=== PATIENT | female | born 1950 | race Caucasian/White ===

== ENCOUNTER 2020-04-26 08:38 | Day surgery (SDC) | payer MEDICARE, SELFPAY ==
[2020-03-29 14:27] VITALS: BMI 29.5
--- NOTE | 2020-04-26 | COLBX_PTH ---
PATIENT: OSCAR STOCK LOC: EN U#:[id number] AGE/SX: 69/F ROOM: RE04/26/[address]: Dr. Hunter Rodriguez MD : 1950 BED: DIS: 04/26/2020 SPEC #: [id number] RECD: 04/26/20 13:46 STATUS: TOBIAS REHumberto #: [id number] ERICA: 04/26/20 00:[address]: Hunter Rodriguez DEPT: SURGICAL PATHOLOGY RECD BY: Amaury Sparks ENTERED: 04/27/20 08:42 SP TYPE: COLON BX OTHR DR: Dr. Bridgett Mai MD Tissues: Transverse colon Procedures: Surgery Specimen Level IV HEADER OPERATION: Colonoscopy (MAC) PRE-OP DIAGNOSIS: Screening colonoscopy TISSUE SUBMITTED: Transverse polyp MICROSCOPIC DIAGNOSIS Transverse colon polyp, biopsy: Tubular adenoma. AM:bull 04/28/20 MICROSCOPIC DESCRIPTION Slides are reviewed. GROSS DESCRIPTION Received in fixative is one container labeled with the patient's name and designated transverse polyp. The specimen consists of a piece of negron-pink polyp measuring 0.5 x 0.5 x 0.3 cm. The specimen is totally submitted in one cassette. / SJ:bull 04/27/20 TC:5 CPT: 74767
--- NOTE | 2020-04-26 06:30 | HP_ITS ---
Intake Vital Signs 03/29/20 Height 5 ft 6 in 03/29/20 Weight: 183 lb 03/29/20 BP 146/77 H 03/29/20 Blood Pressure Location Rt brachial 03/29/20 Position Sitting 03/29/20 Respiration 18 Intake Visit Reasons: CSCOPE Chief Complaint: c-scope Transmission Rebuilder Required: No Is patient in pain?: No Allergies sulfamethoxazole [From Bactrim] Allergy (Mild, Verified 03/29/20 14:28) rash trimethoprim [From Bactrim] Allergy (Mild, Verified 03/29/20 14:28) rash Medications allopurinol 300 mg tablet 300 mg PO DAILY #90 tab 03/18/20 [Rx Confirmed 03/29/20] amiodarone 100 mg tablet 100 mg PO DAILY 03/18/20 [History Confirmed 03/29/20] amlodipine 5 mg tablet 5 mg PO DAILY 03/18/20 [History Confirmed 03/29/20] atorvastatin 10 mg tablet 10 mg PO QHS 03/18/20 [History Confirmed 03/29/20] cyclobenzaprine 10 mg tablet 10 mg PO TID 03/18/20 [History Confirmed 03/29/20] diclofenac sodium 1 % topical gel 4 g TOPICAL .QID g 03/18/20 [History Confirmed 03/29/20] metoprolol tartrate 25 mg tablet 25 mg PO BID 03/18/20 [History Confirmed 03/29/20] rivaroxaban 15 mg tablet 15 mg PO DAILY #90 tab 03/18/20 [Rx Confirmed 03/29/20] tramadol 50 mg tablet 100 mg PO TID PRN tab 03/18/20 [History Confirmed 03/29/20] [facility] Medical History Pancreatitis (Acute) Neuropathy (Chronic) Hives (Acute) Kidney disease (Chronic) Hypertriglyceridemia (Chronic) Hyperlipemia (Chronic) Hypertension (Chronic) Gout (Chronic) Gallstones (Acute) Carpal tunnel syndrome (Acute) Atrial fibrillation (Chronic) Anemia (Acute) Osteoarthritis (Chronic) Seasonal allergies (Chronic) Surgical History History of benign breast biopsy (Acute) History of bilateral knee replacement (Acute) History of cholecystectomy (Acute) History of tonsillectomy (Acute) history of right shoulder surgery (Acute) Family History Mother Myocardial infarction, Onset Age: 75 Other Arthritis CVA (cerebral vascular accident) Cancer Hyperlipemia Hypertension Social History (Updated 03/31/20 @ 10:[address] Hunter Rodriguez MD) Smoking Status: Former smoker quit date: 05/28/04 Tobacco: How many years used: 20 alcohol intake: never substance use type: does not use what type of physical activity do you participate in: walking frequency: 5-6 times per week HPI HPI Surgical H&P: Yes HPI: OSCAR STOCK, is a 69 F who presents to the office today for Evaluation for endoscopy. Patient has had her last colonoscopy greater than 10 years ago. And she presents today for screening colonoscopy. She is having no GI symptoms whatsoever. She is currently on Xarelto for atrial fibrillation. ROS General General: No weight change, appetite, fatigue, colon cancer, breast cancer or weakness HEENT HEENT: No difficulty swallowing, eye injury, eye surgery, swollen glands or hoarseness Endo Endocrine: No thyroid disease, diabetes mellitus, thyroid cancer, Hair loss, heat intolerance or cold intolerance Skin Skin: No rash or changing moles Breast Breast: No left breast lump, right breast lump, nipple discharge, breast pain, abnormal mammogram, abnormal US or breast enlargement Musc Musculoskeletal: Yes back problems, arthritis and gout; no rheumatoid arthritis or joint pain Cardio Cardiovascular: Yes atrial fibrillation and high blood pressure; no murmur, pacemaker, heart disease, heart attack, heart stent, palpitations, shortness of breat with exertion or chest pain Psych Psychiatric: No depression, anxiety or hearing voices Resp Respiratory: No shortness of breath, No sleep apnea, No cough, No COPD, No asthma, No emphysema, No wheezing Gastro Gastrointestinal: No abdominal pain, No nausea or vomiting, No diarrhea, No constipation, No blood in stool, No acid reflux, No hemorrhoids, No ulcers, No gallbladder problem, No black,tarry stools Curt Hematologic: Yes blood thinners, No blood disorders, No bleeding, No anemia, No blood clots Neuro Neurologic: No weakness Exam Const General: no acute distress, well developed, well hydrated Orientation: oriented to person, oriented to place, oriented to time [facility] Head: normocephalic, atraumatic Ears: external ears normal Mouth: moist mucous membranes Eyes Sclera: sclerae normal Pupils: normal by confrontation Neck Neck: no lymphadenopathy noted Neck mass: No Thyroid: thyroid normal, symmetrical Chest Chest palpation & inspection: normal inspection of the chest Breast Palpation: No nipple discharge Resp Effort & Inspection: normal respiratory effort Auscultation: clear to auscultation bilaterally Percussion: percussion normal Cardio Rate: regular rate Rhythm: regular rhythm Heart Sounds: no murmurs GI Palpation: soft, no hepatosplenomegaly, no masses, nontender Rectal Exam: other Other: Rectal exam deferred. Extrem General: normal to inspection, no clubbing, cyanosis or edema Assessment & Plan Problems 1. Encounter for screening colonoscopy Z12.11 Plan I have discussed the above with the patient. I have offered the patient colonoscopy for evaluation. I have explained the risks/benefits of the procedure and described the procedure. I have discussed the risks with the patient, including but not limited to: infection, bleeding, perforation of the GI tract requiring emergency surgery, inability to complete the procedure, injury to any internal organs, complications of anesthesia, etc. - the patient understands and agrees to proceed. I have answered all the patient's questions to the patient's satisfaction and the patient has no further questions. The patient has been given instructions for the colon cleansing preparation. Coding Level of Care Code Off vis,new,level 3 Diagnoses Encounter for screening colonoscopy Z12.11 COVID (Procedure Consent) Procedure Criteria Procedure Criteria: Yes Elective The surgeon/proceduralist and patient have discussed in detail the risk of exposure to and/or potential harm posed by the COVID-19 virus with having a surgery/procedure at this time versus the risk of? delaying the surgery/procedure. It is not possible to know either the risk of delaying the surgery or procedure or chance of getting an infection with perfect accuracy, but a joint decision was made between the patient and the surgeon/proceduralist ?to proceed at this time with the scheduled surgery/procedure as indicated on the consent form. I have re-examined the patient. There are no clinical changes since date of exam.
[2020-04-26 08:59] VITALS: BP 121/62; PULSE 60; RESP 14; TEMP 36.2; O2SAT 100; BMI 28.6
[2020-04-26] MEDS: Lactated Ringers 1,000 ML 100 ML IV (09:11)
--- NOTE | 2020-04-26 09:57 | OP.COLON_ITS ---
Patient Name: Shanna Chavez Procedure Date: 04/26/2020 9:30 AM Date of : 1950 Age: 69 Procedure: Colonoscopy Indications: Screening for colorectal malignant neoplasm Providers: Hunter Rodriguez MD Referring MD: Bridgett Mai Medicines: See the Anesthesia note for documentation of the administered medications Patient Profile: This is a 69 year old female. Refer to note in patient chart for documentation of history and physical. Last Colonoscopy: more than 10 years ago. Complications: No immediate complications. Procedure: Pre-Anesthesia Assessment: - Prior to the procedure, a History and Physical was performed, and patient medications and allergies were reviewed. The patient's tolerance of previous anesthesia was also reviewed. The risks and benefits of the procedure and the sedation options and risks were discussed with the patient. All questions were answered, and informed consent was obtained. Prior Anticoagulants: The patient has taken no previous anticoagulant or antiplatelet agents. ASA Grade Assessment: II - A patient with mild systemic disease. After reviewing the risks and benefits, the patient was deemed in satisfactory condition to undergo the procedure. After I obtained informed consent, the scope was passed under direct vision. Throughout the procedure, the patient's blood pressure, pulse, and oxygen saturations were monitored continuously. The colonoscope was introduced through the anus and advanced to the cecum, identified by appendiceal orifice and ileocecal valve. The colonoscopy was performed without difficulty. The patient tolerated the procedure well. The quality of the bowel preparation was good. Scope In: 9:40:10 AM Scope Withdrawal Time 0 hours 6 minutes 35 seconds Scope Out: 9:53:19 AM Total Procedure Duration Time 0 hours 13 minutes 9 seconds Findings: A 5 mm polyp was found in the transverse colon. The polyp was sessile. The polyp was removed with a hot snare. Resection and retrieval were complete. A few small-mouthed diverticula were found in the sigmoid colon. No biopsies or other specimens were collected for this exam. Non-bleeding internal hemorrhoids were found during retroflexion. The hemorrhoids were mild and small. The exam was otherwise without abnormality. Impression: - One 5 mm polyp in the transverse colon, removed with a hot snare. Resected and retrieved. - Diverticulosis in the sigmoid colon. No specimens collected. - Non-bleeding internal hemorrhoids. - The examination was otherwise normal. Recommendation: - Discharge patient to home. - Resume previous diet. - Continue present medications. - Await pathology results. - Repeat colonoscopy in 5-10 years for surveillance. - Telephone my office for pathology results in 1 week. Procedure Code(s): --- Professional --- 28008, Colonoscopy, flexible; with removal of tumor(s), polyp(s), or other lesion(s) by snare technique Diagnosis Code(s): --- Professional --- Z12.11, Encounter for screening for malignant neoplasm of colon D12.3, Benign neoplasm of transverse colon (hepatic flexure or splenic flexure) K64.8, Other hemorrhoids K57.30, Diverticulosis of large intestine without perforation or abscess without bleeding CPT copyright 2017 [employer]. All rights reserved. The codes documented in this report are preliminary and upon assistant teacher primary review may be revised to meet current compliance requirements. MD Hunter Lord MD 04/26/2020 9:57:51 AM This report has been signed electronically. Number of Addenda: 0 Note Initiated On: 04/26/2020 9:30 AM
[2020-04-26 09:58] VITALS: BP 121/62; BP 85/47; PULSE 58; RESP 16; TEMP 36; O2SAT 100
--- NOTE | 2020-04-26 09:58 | OP.CCLET_ITS ---
04/26/2020 Bridgett Mai [facility] [address] [place] [address] Re : Colonoscopy procedure for Shanna Chavez Dear Dr. Mai This procedure was performed on Sunday, April 26, 2020. My impressions and recommendations are as follows: Impressions : - One 5 mm polyp in the transverse colon, removed with a hot snare. Resected and retrieved. - Diverticulosis in the sigmoid colon. No specimens collected. - Non-bleeding internal hemorrhoids. - The examination was otherwise normal. Recommendations : - Discharge patient to home. - Resume previous diet. - Continue present medications. - Await pathology results. - Repeat colonoscopy in 5-10 years for surveillance. - Telephone my office for pathology results in 1 week. My findings are described in the full procedure note, which is enclosed. If I can be of further assistance, please feel free to contact me at Doctor phone number(s): , Fax: [phone], Work: . Sincerely, MD Hunter Lord MD 04/26/2020 9:57:51 AM This report has been signed electronically.
[2020-04-26 10:00] VITALS: BP 121/62; BP 83/47; PULSE 58; RESP 16; O2SAT 100
[2020-04-26 10:05] VITALS: BP 121/62; BP 94/54; PULSE 60; RESP 16; O2SAT 99
[2020-04-26 10:11] VITALS: BP 106/59; BP 121/62; PULSE 56; RESP 16; TEMP 36.2; O2SAT 100
[2020-04-26 10:18] VITALS: BP 121/62
== END 2020-04-26 10:36 | disposition home or self-care (01) ==
LOC: EN 08:39 → AC 08:39
PROVIDERS: PCP Internal Medicine; Referring Provider Internal Medicine; Visit Provider Surgery
PROC: 0DJD8ZZ Inspection of Lower Intestinal Tract, Via Natural or Artificial Opening Endoscopic (ICD-10-PCS; CPT 45378; principal; 2020-04-26 09:40)
DX: Z12.11 Encounter for screening for malignant neoplasm of colon (principal); D12.3 Benign neoplasm of transverse colon; K57.30 Diverticulosis of large intestine without perforation or abscess without bleeding; K64.8 Other hemorrhoids; I48.91 Unspecified atrial fibrillation; I10 Essential (primary) hypertension; E78.5 Hyperlipidemia, unspecified; M10.9 Gout, unspecified; M19.90 Unspecified osteoarthritis, unspecified site; Z79.01 Long term (current) use of anticoagulants; Z79.899 Other long term (current) drug therapy; Z87.891 Personal history of nicotine dependence; Z20.828 Contact with and (suspected) exposure to other viral communicable diseases
CPT/HCPCS: 45385; 87426; 88305; C9803; J7120; J1610; J2405

== ENCOUNTER → 2020-07-14 11:39 | Outpatient (CLI) | payer MEDICARE, SELFPAY ==
[2020-07-14 12:59] LABS: Absolute Lymphocyte Count 1.73 X10^3/uL (0.83-4.51); Absolute Neutrophil Count 3.7 X10^3/uL (2.0-7.7); Basophil# 0.06 X10^3/uL; Basophil% 0.9 % (0-1); Eosinophil# 0.26 X10^3/uL; Eosinophils% 4.1 % (0-5); Hematocrit 42.6 % (37-47); Lymphocyte # 1.73 X10^3/ul (4.0); Lymphocyte % 27.2 % (19-41); Mean Corp Hgb Conc 30.5 g/dL (32-36); Mean Corpuscular Hgb 29.3 pg (27.0-32.0); Mean Corpuscular Volume 96.2 fL (81-99); Monocyte# 0.59 X10^3/uL; Monocyte% 9.3 % (0-10); NRBC Flagged by Analyzer 0 % (0-5); Neutrophil # 3.71 X10^3/uL (2.7-7.7); Neutrophil % 58.2 % (47-70); Platelet Count 254 K/mm3 (150-450); RBC Distribution Width CV 14.1 % (11.6-14.6); RBC Distribution Width SD 49.8 fl (35.1-43.9); Red Blood Count 4.43 M/mm3 (4.2-5.4); White Blood Count 6.4 K/mm3 (4.4-11.0)
[2020-07-14 13:27] LABS: ALB/GLOB Ratio 0.9 RATIO (0.9-2.4); AST(SGOT) 24 U/L (15-37); Alanine Aminotransfer ALT/SGPT 17 U/L (13-56); Albumin, Serum 3.9 g/dL (3.2-5.0); Alkaline Phosphatase 149 U/L (45-117); Anion Gap 6 (5-15); BUN 31 mg/dL (7-18); Calcium,Total 9.8 mg/dL (8.5-10.1); Chloride 103 mmol/L (98-107); Cholesterol 167 mg/dL (200); Creatinine, Serum 1.72 mg/dL (0.55-1.02); EST Glomerular Filtration Rate 31 mL/min (>60); Est Glom Filt Rate - Afr Amer 38 mL/min (>60); Globulin 4.3 g/dL (2.2-4.2); Glucose 106 mg/dL (74-106); High Density Lipoprotein 99 mg/dL; Potassium 4.9 mmol/L (3.5-5.1); Protein, Total 8.2 g/dL (6.4-8.2); Sodium Level 137 mmol/L (136-145); Triglycerides 57 mg/dL; Uric Acid 2.6 mg/dL (2.6-6.0); Very Low Density Lipoprotein 11 mg/dL (5-40)
[2020-07-14 13:55] LABS: Hemoglobin A1c 5.5 % (3.8-5.6)
[2020-07-16 14:26] LABS: Vitamin D 1,25-Dihydroxy 23.7 pg/mL (19.9-79.3)
== END ==
PROVIDERS: PCP Internal Medicine; Referring Provider Internal Medicine; Visit Provider Internal Medicine
DX: E78.1 Pure hyperglyceridemia (principal); E78.5 Hyperlipidemia, unspecified; I10 Essential (primary) hypertension; I48.91 Unspecified atrial fibrillation; M10.9 Gout, unspecified; R79.89 Other specified abnormal findings of blood chemistry; K85.90 Acute pancreatitis without necrosis or infection, unspecified
CPT/HCPCS: 36415; 80053; 80061; 82652; 83036; 84550; 85025

== ENCOUNTER 2020-08-03 14:01 | Outpatient (RCR) | payer MEDICARE, SELFPAY ==
[2020-07-21 13:48] VITALS: BMI 29.5
[2020-08-03] MEDS: COVID-19 VACC, MRNA(PFIZER)/PF 30 MCG/0.3 ML SYRINGE IM (15:52)
[2020-08-24] MEDS: COVID-19 VACC, MRNA(PFIZER)/PF 30 MCG/0.3 ML SYRINGE IM (15:57)
== END 2020-11-02 23:59 ==
LOC: IMMUN 14:01
PROVIDERS: PCP Internal Medicine; Referring Provider Family Medicine; Visit Provider Family Medicine
DX: Z23 Encounter for immunization (principal)
CPT/HCPCS: 0001A; 0002A; 91300

== ENCOUNTER → 2020-08-09 | Outpatient (CLI) | payer MEDICARE, SELFPAY ==
[2020-08-09 09:47] VITALS: BMI 30.5
[2020-08-12 14:01] LABS: HPV APTIMA, High Risk Negative (Negative)
== END | disposition home or self-care (01) ==
LOC: LABSPEC 16:27
PROVIDERS: PCP Internal Medicine; Referring Provider Obstetrics & Gynecology; Visit Provider Obstetrics & Gynecology
DX: Z12.4 Encounter for screening for malignant neoplasm of cervix (principal)
CPT/HCPCS: 87624; 88175; G0145

== ENCOUNTER → 2020-10-07 08:33 | Outpatient (CLI) | payer MEDICARE, SELFPAY ==
[2020-10-07 08:10] VITALS: BMI 30.5
[2020-10-07 11:58] LABS: Absolute Lymphocyte Count 1.48 X10^3/uL (0.83-4.51); Absolute Neutrophil Count 2.6 X10^3/uL (2.0-7.7); Basophil# 0.06 X10^3/uL; Basophil% 1.2 % (0-1); Eosinophil# 0.29 X10^3/uL; Eosinophils% 5.9 % (0-5); Hematocrit 41.2 % (37-47); Hemoglobin 12.6 g/dL (12.0-15.0); Lymphocyte # 1.48 X10^3/ul (0.83-4.51); Mean Corp Hgb Conc 30.6 g/dL (32-36); Mean Corpuscular Hgb 29.6 pg (27.0-32.0); Mean Corpuscular Volume 96.7 fL (81-99); Mean Platelet Vol. 10.2 fl (6.2-12.0); Monocyte# 0.45 X10^3/uL; Monocyte% 9.1 % (0-10); NRBC Flagged by Analyzer 0 % (0-5); Neutrophil # 2.64 X10^3/uL (2.7-7.7); Neutrophil % 53.6 % (47-70); Platelet Count 264 K/mm3 (150-450); RBC Distribution Width CV 14.4 % (11.6-14.6); RBC Distribution Width SD 51.7 fl (35.1-43.9); Red Blood Count 4.26 M/mm3 (4.2-5.4); White Blood Count 4.9 K/mm3 (4.4-11.0)
[2020-10-07 12:10] LABS: Anion Gap 6 (5-15); BUN 24 mg/dL (7-18); BUN/Creat Ratio 14.4 RATIO (10-20); Calcium,Total 9.4 mg/dL (8.5-10.1); Chloride 106 mmol/L (98-107); Creatinine, Serum 1.67 mg/dL (0.55-1.02); EST Glomerular Filtration Rate 32 mL/min (>60); Est Glom Filt Rate - Afr Amer 39 mL/min (>60); Glucose 102 mg/dL (74-106); Sodium Level 140 mmol/L (136-145)
[2020-10-08 10:01] LABS: Magnesium 2.1 mg/dL (1.6-2.6)
== END ==
PROVIDERS: Obstetrics & Gynecology; PCP Internal Medicine; Referring Provider Internal Medicine; Visit Provider Internal Medicine
DX: Z01.812 Encounter for preprocedural laboratory examination (principal); I48.91 Unspecified atrial fibrillation; E78.1 Pure hyperglyceridemia; E78.5 Hyperlipidemia, unspecified; I10 Essential (primary) hypertension; M19.90 Unspecified osteoarthritis, unspecified site; D64.9 Anemia, unspecified; N81.2 Incomplete uterovaginal prolapse; K85.90 Acute pancreatitis without necrosis or infection, unspecified; J30.2 Other seasonal allergic rhinitis
CPT/HCPCS: 36415; 80048; 83735; 85025

== ENCOUNTER 2020-10-15 12:54 | Observation (INO) | payer MEDICARE, SELFPAY ==
[2020-08-09 09:47] VITALS: BMI 30.5
[2020-10-07 08:10] VITALS: BMI 30.5
--- NOTE | 2020-10-07 09:31 | EKG12_ITS ---
Test Reason : PREOP Blood Pressure : / mmHG Vent. Rate : 076 BPM Atrial Rate : 076 BPM P-R Int : 214 ms QRS Dur : 120 ms QT Int : 416 ms P-R-T Axes : 080 -67 083 degrees QTc Int : 468 ms Sinus rhythm with 1st degree A-V block Left anterior fascicular block Left ventricular hypertrophy with QRS widening Poor R wave progression Abnormal ECG Confirmed by DALLIN VEGA, HUY ([id number]), assistant production editor KALYN THORNE ([id number]) on 10/08/2020 10:39:52 AM Referred By: LEVI Confirmed By:HUY ZAMARRIPA MD
[2020-10-15] VITALS (11 sets, daily range): BP systolic 102–145; BP diastolic 58–78; PULSE 55–87; RESP 16; TEMP 35.6–36.9; O2SAT 96–100; BMI 31.4
[2020-10-15] MEDS: dexAMETHasone 10 MG/ML Vial 8 MG IV (06:27)
[2020-10-15] MEDS: Celecoxib 200 MG Capsule 400 MG PO (06:38)
[2020-10-15] MEDS: Gabapentin 600 MG Tablet PO (06:38)
[2020-10-15] MEDS: Acetaminophen 500 MG Tablet 1000 MG PO ×3 (06:38→17:33)
[2020-10-15] MEDS: Scopolamine 1mg/72hr Patch 1 PATCH TD (06:39)
[2020-10-15] MEDS: Lactated Ringers 1,000 ML 40 ML IV (06:43)
[2020-10-15 07:00] LABS: Bedside Glucose 70 mg/dL (70-110)
[2020-10-15] MEDS: Ondansetron 4 MG/2 ML Vial IV (07:00)
--- NOTE | 2020-10-15 07:05 | PCM.HP.STD ---
HPI - General HPI Narrative OSCAR STOCK, is a 69 F who presents for surgical intervention for pelvic organ prolapse and incontinence. [facility] Medical History (Updated 10/15/20 @ 07:[address] Samira Guerra MD) Anemia Atrial fibrillation Back pain Carpal tunnel syndrome Former smoker Gallstones Gout History of bruising easily History of stress incontinence Hives Hx of cardiovascular stress test Hyperlipemia Hypertension Hypertriglyceridemia Kidney disease Neuropathy Osteoarthritis Pancreatitis Post-menopausal Preop exam for internal medicine Seasonal allergies Stress incontinence in female Wears glasses Home Medications allopurinol 300 mg tablet 300 mg PO DAILY #90 tab 03/18/20 [Rx Last Taken Unknown] amiodarone 100 mg tablet 100 mg PO DAILY 03/18/20 [History Last Taken 10/15/20 04:00] amlodipine 5 mg tablet 5 mg PO DAILY 03/18/20 [History Last Taken 10/15/20 04:00] atorvastatin 10 mg tablet 10 mg PO QHS 03/18/20 [History Last Taken Unknown] diclofenac sodium 1 % topical gel 4 g TOPICAL .QID g 03/18/20 [History Last Taken Unknown] rivaroxaban 15 mg tablet 15 mg PO DAILY #90 tab 03/18/20 [Rx Last Taken Unknown] conjugated estrogens 0.625 mg/gram vaginal cream 0.625 mg VAGINAL TUSA 08/09/20 [History Last Taken Unknown] metoprolol tartrate 25 mg tablet 25 mg PO BID #180 tablet 08/19/20 [Rx Last Taken 10/15/20 04:00] cyclobenzaprine 10 mg PO TID 10/08/20 [History Last Taken Unknown] Allergy/AdvReac Type Severity Reaction Status Date / Time sulfamethoxazole Allergy Mild rash Verified 10/08/20 09:05 [From Bactrim] trimethoprim [From Bactrim] Allergy Mild rash Verified 10/08/20 09:05 Family History Mother Myocardial infarction, Onset Age: 75 Son , in 2017. Brain cancer Other Arthritis CVA (cerebral vascular accident) Cancer Hyperlipemia Hypertension Surgical History History of benign breast biopsy History of bilateral knee replacement History of cholecystectomy history of right shoulder surgery History of tonsillectomy Hx of cardiac catheterization Hx of colonoscopy with polypectomy Social History Smoking Status: Former smoker quit date: 05/28/04 Tobacco: How many years used: 20 alcohol intake: never substance use type: does not use what type of physical activity do you participate in: walking frequency: 5-6 times per week ROS Constitutional Constitutional: Denies anorexia, change in weight or frequent falls Eyes Eyes: Reports systems reviewed and no addt'l complaints, except as documented ENT HEENT: Reports systems reviewed and no addt'l complaints, except as documented Cardiovascular Cardiovascular: Denies chest pain Respiratory/Chest Respiratory/Chest: Denies dyspnea Gastrointestinal Gastrointestinal: Denies abdominal pain, nausea or taste impaired Genitourinary Genitourinary: Reports urinary incontinence, urinary urgency and other Details: prolapse pelvic organs Musculoskeletal Musculoskeletal: Reports systems reviewed and no addt'l complaints, except as documented Integumentary Integumentary: Reports systems reviewed and no addt'l complaints, except as documented Neurologic Neurologic: Reports systems reviewed and no addt'l complaints, except as documented Psychiatric Psychiatric: Reports systems reviewed and no addt'l complaints, except as documented Vital Signs Vital Signs Vital Signs: 10/15/20 06:47 Temperature 97.2 F L Temperature Source Temporal Pulse Rate 61 Respiratory Rate 16 Respiratory Pattern Normal Blood Pressure 120/58 L Blood Pressure Mean 78 Blood Pressure Source Monitor Blood Pressure Position Semi-Fowlers Blood Pressure Location Right Arm Pulse Ox 100 Oxygen Delivery Method Room Air Physical Exam Const alert, oriented x3 and no apparent distress General Appearance: cooperative and comfortable Orientation / Consciousness: awake Exam Limitations: no limitations HEENT normocephalic, head/scalp atraumatic and hearing grossly normal bilaterally Neck supple General: normal visual inspection and trachea midline Chest inspection of chest normal Chest: symmetrical chest wall rise Resp normal respiratory effort, normal air movement, no retractions and no use of accessory muscles Cardio regular rate and regular rhythm GI soft to palpation, non-tender and non-distended Extremity normal to inspection and no calf tenderness Skin no rashes or lesions noted and no wounds Neuro oriented x3 and CN's II-XII intact bilaterally Psych mental status grossly normal, thought process normal and cooperative Lab / Micro Data Labs: Laboratory Results - last 24 hr 10/15/20 06:34 POC Glucose 70 Assessment & Plan Assessment/Plan (1) Prolapse of female pelvic organs: QUALIFIERS: Prolapse type: incomplete uterovaginal prolapse Qualified Code(s): N81.2 - Incomplete uterovaginal prolapse PLAN: proceed with surgical intervention with hysterectomy, anterior repair with Dermis, bilateral sacrospinous ligament fixation, posterior repair, midurethral sling and cystoscopy informed consent was obtained (2) Stress incontinence in female: Procedure Criteria Type of Procedure Procedure Type: Elective Elective Risks - COVID COVID Risk Discussion: The surgeon/proceduralist and patient have discussed in detail the risk of exposure to and/or potential harm posed by the COVID-19 virus with having a surgery/procedure at this time versus the risk of delaying the surgery/procedure. It is not possible to know either the risk of delaying the surgery or procedure or chance of getting an infection with perfect accuracy, but a joint decision was made between the patient and the surgeon/proceduralist to proceed at this time with the scheduled surgery/procedure as indicated on the consent form.
--- NOTE | 2020-10-15 07:12 | PCM.HP.OB ---
HPI - General HPI Narrative OSCAR STOCK, is a 69 F who presents total vaginal hysterectomy, possible bilateral salpingoophorectomy, pelvic floor repair for pelvic organ prolapse. [facility] Medical History (Updated 10/15/20 @ 07:[address] Samira Guerra MD) Anemia Atrial fibrillation Back pain Carpal tunnel syndrome Former smoker Gallstones Gout History of bruising easily History of stress incontinence Hives Hx of cardiovascular stress test Hyperlipemia Hypertension Hypertriglyceridemia Kidney disease Neuropathy Osteoarthritis Pancreatitis Post-menopausal Preop exam for internal medicine Seasonal allergies Stress incontinence in female Wears glasses Home Medications allopurinol 300 mg tablet 300 mg PO DAILY #90 tab 03/18/20 [Rx Last Taken Unknown] amiodarone 100 mg tablet 100 mg PO DAILY 03/18/20 [History Last Taken 10/15/20 04:00] amlodipine 5 mg tablet 5 mg PO DAILY 03/18/20 [History Last Taken 10/15/20 04:00] atorvastatin 10 mg tablet 10 mg PO QHS 03/18/20 [History Last Taken Unknown] diclofenac sodium 1 % topical gel 4 g TOPICAL .QID g 03/18/20 [History Last Taken Unknown] rivaroxaban 15 mg tablet 15 mg PO DAILY #90 tab 03/18/20 [Rx Last Taken Unknown] conjugated estrogens 0.625 mg/gram vaginal cream 0.625 mg VAGINAL TUSA 08/09/20 [History Last Taken Unknown] metoprolol tartrate 25 mg tablet 25 mg PO BID #180 tablet 08/19/20 [Rx Last Taken 10/15/20 04:00] cyclobenzaprine 10 mg PO TID 10/08/20 [History Last Taken Unknown] Allergy/AdvReac Type Severity Reaction Status Date / Time sulfamethoxazole Allergy Mild rash Verified 10/08/20 09:05 [From Bactrim] trimethoprim [From Bactrim] Allergy Mild rash Verified 10/08/20 09:05 Family History Mother Myocardial infarction, Onset Age: 75 Son , in 2017. Brain cancer Other Arthritis CVA (cerebral vascular accident) Cancer Hyperlipemia Hypertension Surgical History History of benign breast biopsy History of bilateral knee replacement History of cholecystectomy history of right shoulder surgery History of tonsillectomy Hx of cardiac catheterization Hx of colonoscopy with polypectomy Social History Smoking Status: Former smoker quit date: 05/28/04 Tobacco: How many years used: 20 alcohol intake: never substance use type: does not use what type of physical activity do you participate in: walking frequency: 5-6 times per week History 3 Elective abortions Hx Para 3 Spontaneous abortions Hx # Term Pregnancies Ectopic pregnancies Hx # Pregnancies Multiple births # of living children ROS Eyes Eyes: Reports systems reviewed and no addt'l complaints, except as documented ENT HEENT: Reports systems reviewed and no addt'l complaints, except as documented Cardiovascular Cardiovascular: Reports systems reviewed and no addt'l complaints, except as documented Respiratory/Chest Respiratory/Chest: Reports systems reviewed and no addt'l complaints, except as documented Gastrointestinal Gastrointestinal: Reports systems reviewed and no addt'l complaints, except as documented Genitourinary Genitourinary: Reports systems reviewed and no addt'l complaints, except as documented Musculoskeletal Musculoskeletal: Reports systems reviewed and no addt'l complaints, except as documented Integumentary Integumentary: Reports systems reviewed and no addt'l complaints, except as documented Neurologic Neurologic: Reports systems reviewed and no addt'l complaints, except as documented Psychiatric Psychiatric: Reports systems reviewed and no addt'l complaints, except as documented Endocrine Endocrinology: Reports systems reviewed and no addt'l complaints, except as documented Hematologic/Lymphatic Hematologic/Lymphatic: Reports systems reviewed and no addt'l complaints, except as documented Allergic/Immunologic Allergic/Immunologic: Reports systems reviewed and no addt'l complaints, except as documented Vital Signs Vital Signs Vital Signs: 10/15/20 06:47 Temperature 97.2 F L Temperature Source Temporal Pulse Rate 61 Respiratory Rate 16 Respiratory Pattern Normal Blood Pressure 120/58 L Blood Pressure Mean 78 Blood Pressure Source Monitor Blood Pressure Position Semi-Fowlers Blood Pressure Location Right Arm Pulse Ox 100 Oxygen Delivery Method Room Air Physical Exam Const alert, oriented x3, no apparent distress, average body habitus, healthy appearing and well nourished HEENT normocephalic and moist oral mucous membranes Head and Scalp: atraumatic Eyes PERRL and EOMs intact bilaterally Neck full ROM Resp normal respiratory effort, no retractions and no use of accessory muscles Cardio regular rate and regular rhythm GI soft to palpation, non-tender and non-distended Extremity normal to inspection and full ROM Skin no rashes or lesions noted Neuro no focal motor deficits and no sensory deficits noted Psych mental status grossly normal, affect normal, speech normal and activity/motor behavior normal Labs Labs Labs: Blood Type Pending Antibody Screen Pending Hct 41.2 % (37-47) Hgb 12.6 g/dL (12.0-15.0) Assessment & Plan (1) Prolapse of female pelvic organs: QUALIFIERS: Prolapse type: incomplete uterovaginal prolapse Qualified Code(s): N81.2 - Incomplete uterovaginal prolapse PLAN: Patient presents for total vaginal hysterectomy, possible bilateral salpingoophorectomy for pelvic organ prolapse Again reviewed risks of surgery and pre and post-op expectations Medically cleared for surgery by PCP ROS performed and is negative Reviewed PFSH - no changes since last visit Consent form signed in office
[2020-10-15] MEDS: Cefazolin 2 GM in 0.9% Normal Saline 100 ML IV (07:17)
--- NOTE | 2020-10-15 07:30 | HYST_PTH ---
PATIENT: OSCAR STOCK LOC: MS3 U#:[id number] AGE/SX: 69/F ROOM: CO315 RE10/15/[address]: Dr. Joanna Zhao MD : 1950 BED: 1 DIS: 10/16/2020 SPEC #: [id number] RECD: 10/15/20 10:48 STATUS: TOBIAS JONES #: [id number] ERICA: 10/15/20 07:[address]: Joanna Zhao DEPT: SURGICAL PATHOLOGY RECD BY: Nishi Estrella ENTERED: 10/15/20 12:11 SP TYPE: HYSTERECT OTHR DR: MD Dr. Bridgett Roblero MD Tissues: Uterus, NOS Procedures: Surgery Specimen Level V HEADER OPERATION: ERAS, vaginal hysterectomy PRE-OP DIAGNOSIS: Prolapse of pelvic organs TISSUE SUBMITTED: Uterus, cervix MICROSCOPIC DIAGNOSIS Uterus, cervix, vaginal hysterectomy: Cervix ? mild chronic inflammation, hyperkeratosis and parakeratosis. Endometrium ? inactive endometrium with focal cystic changes. Myometrium ? intramural leiomyomas (0.8 cm in greatest dimension). Focal adenomyosis. MAX:bull 10/18/2020 MICROSCOPIC DESCRIPTION Slides are reviewed. GROSS DESCRIPTION Received in fixative is one container labeled with the patient's name and designated uterus. The specimen consists of a uterus with attached cervix with fallopian tubes or ovaries measuring 8.9 x 4.5 x 3 cm and weighing 52 gm. The ectocervix is unremarkable. The cervical os is oval in contour. The endocervical canal measures 4.2 cm in length and is grossly unremarkable. The triangular endometrial cavity measures 3.5 x 2.6 cm. The velvety, light negron endometrium measures up to 0.2 cm in thickness. The myometrium measures 2 cm in average thickness and contains two negron-white nodules ranging in size from 0.6 to 0.8 cm. Tanning Wheel Operator sections are submitted in six cassettes as follows: 1 - anterior cervix, 2 - posterior cervix, 3 & 4 - anterior uterine wall with mass, 5 & 6 - posterior uterine wall with mass. / AM:bull 10/15/20 TC:1 CPT: 71714
[2020-10-15] MEDS: Vasopressin 20 UNITS/ML Vial (07:49)
[2020-10-15] MEDS: Lubricating Jelly 60 GM Tube 30 GM TOPICAL (07:50)
[2020-10-15] MEDS: Estrogens,Conj. 1 Tube 1 DOSE (08:37)
--- NOTE | 2020-10-15 09:54 | PCM.OPRPT ---
Problems Associated Problem List Diagnoses (1) Prolapse of female pelvic organs: Report of Operation Date of Procedure: 10/15/20 Pre-Operative Diagnosis: Pelvic organ prolapse Post-Operative Diagnosis: Same Surgery/Procedure Performed:: Total vaginal hysterectomy Description of Surgical Findings:: Normal appearing uterus, cervix, tubes, and ovaries. sulfuric acid plant operator: Simone Johnston Type of Anesthesia: General Special Medications: Ancef 2g Specimen's removed: Uterus, cervix Estimated Blood Loss (mL): 150 Fluids Replaced: 1000 Description of Procedure: Patient was taken to the operating room and was placed under general anesthesia was prepped and draped in normal sterile fashion in the dorsal lithotomy position. Preoperative antibiotics and SCDs and Todd catheter was placed inside the bladder. Weighted speculum was placed in the vagina and the anterior and posterior lip of the cervix was grasped with 2 Jason clamps and circumferentially injected with dilute vasopressin. A circumferential incision was made with a scalpel and the posterior cul-de-sac was entered into sharply and a longneck speculum was placed. The anterior cul-de-sac was also dissected down and entered into sharply and the uterosacral ligaments were clamped cut and suture ligated bilaterally followed by the cardinal ligaments which were Clamped cut and suture ligated bilaterally with 0 Vicryl. The uterus serially descended and progressive bites were taken bilaterally up to the level of the utero-ovarian ligament bilaterally which was clamped transected and double ligated with 0 Vicryl suture and 0 Vicryl free tie. Bilateral fallopian tubes and ovaries were well visualized and noted be within normal limits. They were noted to be well above the operative the field and therefore the decision was made to leave tubes and ovaries in place. Hemostasis was obtained with figures of eight of 0-vicryl. Excellent hemostasis was noted. Posterior peritoneum and the vagina were closed with [id number] 0 Vicryl pop offs including the posterior and anterior peritoneum in the reapproximation. Excellent hemostasis was noted. All instruments removed from the vagina clear urine was noted at the end of the procedure and counts were correct. next Dr Guerra proceeded with her portion of the procedure. Complications None apparent Admit VTE Documentation VTE Present on Admission: No VTE Mechan Device Prophylaxis: SCD's VTE Pharm Prophylaxis ordered?: No Procedures Urinary/Genital [id number]: [id number] TVH <250 gr uterus
--- NOTE | 2020-10-15 10:47 | OP.PCM_ITS ---
Problems Associated Problem List Diagnoses (1) Stress incontinence in female: (2) Prolapse of female pelvic organs: Report of Operation Date of Procedure: 10/15/20 Pre-Operative Diagnosis: Incomplete uterovaginal prolapse, stress urinary incontinence Post-Operative Diagnosis: Same Surgery/Procedure Performed:: Anterior repair with dermis, bilateral sacrospinous ligament fixation, posterior repair, mid urethral sling insertion, cystoscopy with bilateral ureteral catheterization Surgeon: Samira Guerra network solutions architect: Simone Type of Anesthesia: General Specimen's removed: none Estimated Blood Loss (mL): 50cc Description of Procedure: The patient is a 69-year-old female with pelvic organ prolapse and incontinence who presented to the office for treatment. She elected to proceed with surgical intervention and underwent urodynamics and cystoscopy in the office. Informed consent was obtained. The patient was taken to the operating room and placed in the operating room table. Anesthesia monitored the head, neck, airway, IV access and vital signs throughout the case. Once anesthesia was appropriately administered the patient was placed into dorsal lithotomy in Trendelenburg position and was prepped and draped in usual sterile fashion. A Todd catheter was inserted to straight drain and the bladder was emptied. The case started with Dr. Zhao with a hysterectomy. After closure of the cuff, the case was turned over to ks. The anterior vaginal wall was isolated and injected submucosally with vasopressin for hydrostatic dissection and hemostatic control. A midline vertical incision approximately 2 cm in length was then made. Blunt and sharp dissection was performed until the ischial spines were identified and the sacrospinous ligaments were freed from surrounding tissues bilaterally. The bladder was dissected away from the vaginal mucosa up to the area of the cuff and just prior to the bladder neck. At this time the Capio device was used to pass a Monodek suture through the sacrospinous ligament on each side approximately 2 fingerb readths medial to the ischial spine. The sutures were then passed through the dermis which was trimmed to length and then out through the vaginal mucosa at the apex. This was done bilaterally. At this time the dermis was tacked interrupted suture at the area of the midline and the apex and just in front of the bladder neck and bilaterally along the white line. At this time the vaginal mucosa was closed with running interlocking 2-0 Vicryl. The sacrospinous ligament sutures were then tied into position and the prolapse was reduced. Attention was then turned towards the posterior defect. The submucosa was injected with vasopressin once again. A midline incision was made and sharp and blunt dissection was performed until the rectovaginal fascia was isolated. This fascia was brought together and 2 layer closure with interrupted 2-0 Vicryl suture. The repair extended all the way down into the perineal body which was reconstructed. The vaginal mucosa was closed over the repair using running interlocking 2-0 Vicryl. At this time attention was turned toward the mid urethra which was injected submucosally with vasopressin followed by a midline vertical incision approximately 2 cm in length. Sharp and blunt dissection was performed on either side until the space alongside the urethra towards the obturator fascia was opened. Using the trocars, the alters mid urethral sling w as placed into the transobturator fascia bilaterally without difficulty. The sling lay flat against the urethra without tension. The tensioning suture was cut. The vaginal mucosa was closed over the sling with running interlocking 2-0 Vicryl. At this time the Todd catheter was removed and a cystourethroscopy was performed through the urethra. The urethral and bladder mucosa were visualized and their entirety finding no evidence of foreign body or injury. At this time each ureteral orifice was cannulated with a Pollack catheter which was easily advanced 20 cm bilaterally. There was no evidence of obstruction or blood. At this time the cystoscope and Pollick catheter were removed and the Todd catheter was replaced. The bladder was drained and the vagina was packed with vaginal packing and estrogen cream. The patient was then awakened and taken to the recovery room in good condition. There were no complications during this procedure. Grafts/Implants Used: Dermis and Altis midurethral sling Complications none Admit VTE Documentation VTE Present on Admission: Yes VTE Mechan Device Prophylaxis: SCD's VTE Pharm Prophylaxis ordered?: Yes
[2020-10-15] MEDS: Lactated Ringers 1,000 ML 75 ML IV ×2 (11:23→19:42)
[2020-10-15] MEDS: oxyCODONE 5 MG Tablet PO (12:50)
[2020-10-15] MEDS: cycloBENZAPRine HCl 10 MG Tablet PO ×2 (12:50→21:00)
[2020-10-15] MEDS: BENZOCAINE/MENTHOL 1 LOZENGE MUCOUS MEM ×3 (15:32→22:11)
[2020-10-15] MEDS: Ondansetron ODT 4 MG Tablet PO (17:53)
--- NOTE | 2020-10-15 18:04 | NURSING ---
Addendum entered by Snehal Sommers 10/15/20 18:18: DR ROUSSEAU NOTIFIED, NO NEW ORDERS Original Note: PT HAD SCANT EMESIS AFTER SHE CHOKED ON A PIECE OF FOOD, I HOPE IT DIDNT GO INTO MY LUNGS. LS AUDIBLY WHEEZY FOR SEVERAL MINUTES, NOW CTA. POX 98% ON RA. WILL NOTIFY DR SIMS
[2020-10-15] MEDS: Docusate Sodium 100 MG Capsule PO (20:59)
[2020-10-15] MEDS: Cephalexin 500 MG Capsule PO (21:00)
[2020-10-15] MEDS: Metoprolol Tartrate 25 MG Tablet PO (21:00)
[2020-10-16 00:45] VITALS: BP 117/70; PULSE 76; RESP 16; TEMP 36.4; O2SAT 96
[2020-10-16] MEDS: Acetaminophen 500 MG Tablet 1000 MG PO ×3 (00:49→12:37)
[2020-10-16] MEDS: BENZOCAINE/MENTHOL 1 LOZENGE MUCOUS MEM ×2 (00:52→10:04)
[2020-10-16 04:29] VITALS: BP 113/61; PULSE 73; RESP 16; TEMP 36.6; O2SAT 97
[2020-10-16] MEDS: 0.9% Saline Lock 10 ML Syringe IV (04:35)
[2020-10-16] MEDS: cycloBENZAPRine HCl 10 MG Tablet PO (05:46)
[2020-10-16 06:55] LABS: Hematocrit 33.7 % (37-47); Hemoglobin 10.6 g/dL (12.0-15.0); Mean Corp Hgb Conc 31.5 g/dL (32-36); Mean Corpuscular Hgb 30.1 pg (27.0-32.0); Mean Corpuscular Volume 95.7 fL (81-99); Platelet Count 256 K/mm3 (150-450); RBC Distribution Width CV 14.1 % (11.6-14.6); RBC Distribution Width SD 49.1 fl (35.1-43.9); Red Blood Count 3.52 M/mm3 (4.2-5.4); White Blood Count 12.9 K/mm3 (4.4-11.0)
--- NOTE | 2020-10-16 07:09 | PCM.DC ---
Discharge Instructions Diet Discharge Diet: No restrictions Activity Discharge Activity: Return to Normal Activity, May Not Drive (while taking narcotic pain medications.) and May Shower May resume sexual activity in: 6-8 weeks Dressing / Incision Call your doctor if your incision/area has: Continuous Slow Oozing, Sudden Increased Bleeding, Increased Pain/ Swelling, Increased Redness and Foul Smelling Discharge Call your doctor if you observe: Fever of 101 or Higher, Inability to urinate, Inability to have a bowel movement and Using more than one pad per hour Follow Up Care Please Follow Up With: Jewell Garcia MD Test Results: Test results from this visit will be discussed in further detail at your follow-up appointment, if applicable. Discharge Plan Admission Admit Date/Time: 10/15/20 12:54 Attending Provider: Joanna Zhao Primary Care Provider: Bridgett Mai Consulting Providers: Samira Guerra Discharge Orders/Prescriptions Prescriptions: New oxycodone-acetaminophen [Percocet] 5-325 mg tablet 1 tab PO Q6H PRN (Reason: pain) 7 Days Qty: 20 RF: 0 Continued amlodipine 5 mg tablet 5 mg PO DAILY RF: 0 atorvastatin [Lipitor] 10 mg tablet 10 mg PO QHS RF: 0 amiodarone 100 mg tablet 100 mg PO DAILY RF: 0 diclofenac sodium [Voltaren] 1 % gel 4 g TOPICAL .QID RF: 0 allopurinol 300 mg tablet 300 mg PO DAILY Qty: 90 RF: 1 Xarelto 15 mg tablet 15 mg PO DAILY Qty: 90 RF: 1 Premarin 0.625 mg/gram cream 0.625 mg VAGINAL TUSA RF: 0 cyclobenzaprine 10 mg tablet 10 mg PO TID RF: 0 metoprolol tartrate 25 mg tablet 25 mg PO BID Qty: 180 RF: 1 Referrals / Follow Up: Bridgett Mai MD [Primary Care Provider] - Disposition Disposition (needs filled in before D/C Order can be placed): Home, self care
--- NOTE | 2020-10-16 07:13 | PCM.PN.OB ---
Subjective Subjective patient recovering well, denies CP, SOB, N, or V. patient is ambulating, voiding ,tolerating adequate po, and pain is controlled with oral medications. Objective Data Objective Data Vital Signs: Vital Signs Temp Pulse Resp BP Pulse Ox 97.9 F 73 16 113/61 97 10/16/20 04:29 10/16/20 04:29 10/16/20 04:29 10/16/20 04:29 10/16/20 04:29 Oxygen Flow Rate (L/min) 6 Oxygen Delivery Method Room Air Weight: 201 lb Body Mass Index (BMI) 31.4 Intake & Output: Intake and Output for Last 24 Hours 10/14/20 10/15/20 10/16/20 23:59 23:59 23:59 Intake Total 2839.25 / 3339.25 1763.75 / 1763.75 Output Total 2325 / 3775 2500 / 2500 Balance 514.25 / -435.75 -736.25 / -736.25 Lab / Micro Data Result Diagrams: 10/16/20 05:53 Labs: Laboratory Results - last 24 hr 10/15/20 10/16/20 06:00 05:53 WBC 12.9 H RBC 3.52 L Hgb 10.6 L Hct 33.7 L MCV 95.7 MCH 30.1 MCHC 31.5 L RDW Std Deviation 49.1 H RDW Coeff of Cristobal 14.1 Plt Count 256 MPV 10.0 Blood Type O POSITIVE Antibody Screen NEGATIVE Physical Exam Const alert, oriented x3 and no apparent distress HEENT normocephalic Head and Scalp: atraumatic Chest inspection of chest normal Resp normal respiratory effort Cardio regular rate and regular rhythm GI soft to palpation and non-tender Assessment & Plan (1) Stress incontinence in female: (2) Acquired female bladder prolapse: PLAN: patient is s/p tvh POD 1 1. routine ERAS protocol postop care- increase ambulation, encourage oral intake and oral control of pain. lovenox bridge to xarelto and scds for dvt prophylaxis, patient stable for discharge to home.
[2020-10-16 07:33] VITALS: O2SAT 95
[2020-10-16 08:09] VITALS: BP 118/62; PULSE 81; RESP 18; TEMP 36.4; O2SAT 95
--- NOTE | 2020-10-16 08:11 | PCM.PROGNOTE ---
Subjective Subjective Doing well overnight, pain controlled and feeling well. Breakfast is on its way. Objective Data Objective Data Vital Signs: Vital Signs Temp Pulse Resp BP Pulse Ox 97.5 F L 81 18 118/62 95 10/16/20 08:09 10/16/20 08:09 10/16/20 08:09 10/16/20 08:09 10/16/20 08:09 Oxygen Flow Rate (L/min) 6 Oxygen Delivery Method Room Air Weight: 91.172 kg Body Mass Index (BMI) 31.4 Intake & Output: Intake and Output for Last 24 Hours 10/14/20 10/15/20 10/16/20 23:59 23:59 23:59 Intake Total 2839.25 / 3339.25 1763.75 / 1763.75 Output Total 2325 / 3775 2500 / 2500 Balance 514.25 / -435.75 -736.25 / -736.25 Lab / Micro Data Result Diagrams: 10/16/20 05:53 Labs: Laboratory Results - last 24 hr 10/16/20 05:53 WBC 12.9 H RBC 3.52 L Hgb 10.6 L Hct 33.7 L MCV 95.7 MCH 30.1 MCHC 31.5 L RDW Std Deviation 49.1 H RDW Coeff of Cristobal 14.1 Plt Count 256 MPV 10.0 Physical Exam Const alert, oriented x3 and no apparent distress HEENT normocephalic and head/scalp atraumatic Resp normal respiratory effort, normal air movement, no retractions and no use of accessory muscles GI soft to palpation, non-tender and non-distended Narrative: will clear yellow urine, removed without difficulty. vaginal packing removed, no active bleeding Assessment & Plan Assessment/Plan (1) Stress incontinence in female: (2) Acquired female bladder prolapse: PLAN: await trial of void home later today follow up in the office in 1-2 weeks
--- NOTE | 2020-10-16 08:13 | PCM.DC ---
Discharge Instructions Diet Discharge Diet: No restrictions Activity Discharge Activity: Return to Normal Activity, May Not Drive (while taking narcotic pain medications.), May not drive while taking narcotic pain medications. and May Shower May resume sexual activity in: 8 weeks Lifting Restrictions: no lifting over 5 pounds for 8 weeks Additional Activity Instructions:: no swimming, hot tubs, exercise or strenuous activity. nothing per vagina except estrogen cream Dressing / Incision Call your doctor if your incision/area has: Continuous Slow Oozing, Sudden Increased Bleeding, Increased Pain/ Swelling, Increased Redness and Foul Smelling Discharge Call your doctor if you observe: Fever of 101 or Higher, Inability to urinate, Inability to have a bowel movement, Using more than one pad per hour, Calf discomfort and Uncontrolled pain Follow Up Care Please Follow Up With: Jewell Garcia MD When: and . Test Results: Test results from this visit will be discussed in further detail at your follow-up appointment, if applicable. Discharge Plan Admission Admit Date/Time: 10/15/20 12:54 Attending Provider: Joanna Zhao Primary Care Provider: Bridgett Mai Consulting Providers: Samira Guerra Discharge Orders/Prescriptions Prescriptions: New oxycodone-acetaminophen [Percocet] 5-325 mg tablet 1 tab PO Q6H PRN (Reason: pain) 7 Days Qty: 20 RF: 0 cephalexin 500 mg capsule 500 mg PO Q12 Qty: 6 RF: 0 Continued amlodipine 5 mg tablet 5 mg PO DAILY RF: 0 atorvastatin [Lipitor] 10 mg tablet 10 mg PO QHS RF: 0 amiodarone 100 mg tablet 100 mg PO DAILY RF: 0 diclofenac sodium [Voltaren] 1 % gel 4 g TOPICAL .QID RF: 0 allopurinol 300 mg tablet 300 mg PO DAILY Qty: 90 RF: 1 Xarelto 15 mg tablet 15 mg PO DAILY Qty: 90 RF: 1 Premarin 0.625 mg/gram cream 0.625 mg VAGINAL TUSA RF: 0 cyclobenzaprine 10 mg tablet 10 mg PO TID RF: 0 metoprolol tartrate 25 mg tablet 25 mg PO BID Qty: 180 RF: 1 Referrals / Follow Up: Bridgett Mai MD [Primary Care Provider] - Disposition Disposition (needs filled in before D/C Order can be placed): Home, self care
[2020-10-16 08:14] VITALS: PULSE 81
[2020-10-16] MEDS: Metoprolol Tartrate 25 MG Tablet PO (08:14)
[2020-10-16] MEDS: Amiodarone 200 MG Tablet 100 MG PO (08:15)
[2020-10-16] MEDS: Cephalexin 500 MG Capsule PO (08:15)
[2020-10-16] MEDS: Docusate Sodium 100 MG Capsule PO (08:15)
[2020-10-16] MEDS: Enoxaparin 40 MG/0.4 ML Syringe SC (08:15)
[2020-10-16] MEDS: amLODIPine 5 MG Tablet PO (08:16)
--- NOTE | 2020-10-16 10:00 | NURSING ---
0810 will cath and vag packing removed by Dr. Guerra.
[2020-10-16] MEDS: Estrogens,Conj. 1 Tube 1 DOSE VAGINAL (10:05)
--- NOTE | 2020-10-16 12:41 | NURSING ---
Mari Dowling notified pt has voided 225, bladder scan showed zero, states she can go home without and catheter and follow up in 2 weeks as scheduled.
[2020-10-16 12:43] VITALS: BP 120/57; PULSE 78; RESP 20; TEMP 37.1; O2SAT 98
== END 2020-10-16 13:12 | disposition home or self-care (01) ==
LOC: SDC 13:04 → MS3 13:04
PROVIDERS: Urology; Admitting Provider Obstetrics & Gynecology; PCP Internal Medicine; Referring Provider Obstetrics & Gynecology; Visit Provider Obstetrics & Gynecology
PROC: (CPT 58260; principal; 2020-10-15 07:10)
PROC: (CPT 57260; 2020-10-15 07:10)
DX: N81.2 Incomplete uterovaginal prolapse (principal); N39.3 Stress incontinence (female) (male); I48.91 Unspecified atrial fibrillation; E78.5 Hyperlipidemia, unspecified; M10.9 Gout, unspecified; G62.9 Polyneuropathy, unspecified; I10 Essential (primary) hypertension; M19.90 Unspecified osteoarthritis, unspecified site; E78.1 Pure hyperglyceridemia; Z87.891 Personal history of nicotine dependence; Z79.899 Other long term (current) drug therapy; Z79.01 Long term (current) use of anticoagulants; D25.1 Intramural leiomyoma of uterus; I44.4 Left anterior fascicular block
CPT/HCPCS: 00940; 57260; 57288; 58260; 36415; 82962; 85027; 86850; 86900; 86901; 88307; 96360; 96361; 96372; 99218; 99251; J7120; A4216; C1758; G0378; G0379; G0463; J2405

== ENCOUNTER 2021-07-11 12:16 | Outpatient (CLI) | payer MEDICARE, SELFPAY ==
[2021-07-11 15:33] LABS: Vitamin D,25 Hydroxy 80.9 ng/mL
[2021-07-11 15:38] LABS: Absolute Lymphocyte Count 1.43 X10^3/uL (0.83-4.51); Absolute Neutrophil Count 3.1 X10^3/uL (2.0-7.7); Basophil# 0.06 X10^3/uL; Basophil% 1.1 % (0-1); Eosinophil# 0.46 X10^3/uL; Eosinophils% 8.4 % (0-5); Hematocrit 36.9 % (37-47); Hemoglobin 11.5 g/dL (12.0-15.0); Lymphocyte # 1.43 X10^3/ul (0.83-4.51); Mean Corp Hgb Conc 31.2 g/dL (32-36); Mean Corpuscular Hgb 30.7 pg (27.0-32.0); Mean Corpuscular Volume 98.7 fL (81-99); Mean Platelet Vol. 10.7 fl (6.2-12.0); Monocyte# 0.41 X10^3/uL; Monocyte% 7.5 % (0-10); NRBC Flagged by Analyzer 0 % (0-5); Neutrophil # 3.11 X10^3/uL (2.7-7.7); Neutrophil % 56.6 % (47-70); Platelet Count 221 K/mm3 (150-450); RBC Distribution Width CV 14.6 % (11.6-14.6); RBC Distribution Width SD 53.1 fl (35.1-43.9); Red Blood Count 3.74 M/mm3 (4.2-5.4); White Blood Count 5.5 K/mm3 (4.4-11.0)
[2021-07-11 16:02] LABS: AST(SGOT) 26 U/L (15-37); Alanine Aminotransfer ALT/SGPT 21 U/L (13-56); Albumin, Serum 3.7 g/dL (3.2-5.0); Alkaline Phosphatase 121 U/L (45-117); Anion Gap 6 (5-15); BUN 21 mg/dL (7-18); BUN/Creat Ratio 13.2 RATIO (10-20); Calcium,Total 9.1 mg/dL (8.5-10.1); Chloride 110 mmol/L (98-107); Cholesterol 132 mg/dL (200); Creatinine, Serum 1.59 mg/dL (0.55-1.02); EST Glomerular Filtration Rate 34 mL/min (>60); Est Glom Filt Rate - Afr Amer 41 mL/min (>60); Globulin 3.8 g/dL (2.2-4.2); Glucose 82 mg/dL (74-106); High Density Lipoprotein 70 mg/dL; Potassium 4.3 mmol/L (3.5-5.1); Protein, Total 7.5 g/dL (6.4-8.2); Sodium Level 142 mmol/L (136-145); Thyroid Stim Hormone (TSH) 2.34 uIU/mL (0.358-3.74); Triglycerides 56 mg/dL; Very Low Density Lipoprotein 11 mg/dL (5-40)
== END 2021-07-11 23:59 | disposition home or self-care (01) ==
LOC: BIMLAB 12:17
PROVIDERS: PCP Internal Medicine; Referring Provider Internal Medicine; Visit Provider Internal Medicine
DX: I10 Essential (primary) hypertension (principal); E78.5 Hyperlipidemia, unspecified; E78.1 Pure hyperglyceridemia; M19.90 Unspecified osteoarthritis, unspecified site; J30.2 Other seasonal allergic rhinitis; N28.9 Disorder of kidney and ureter, unspecified; D64.9 Anemia, unspecified; E55.9 Vitamin D deficiency, unspecified
CPT/HCPCS: 36415; 80053; 80061; 82306; 84443; 85025

== ENCOUNTER → 2022-04-26 | Outpatient (CLI) | payer MEDICARE, SELFPAY ==
[2022-04-26 12:27] LABS: Absolute Lymphocyte Count 1.35 X10^3/uL (0.83-4.51); Absolute Neutrophil Count 4.4 X10^3/uL (2.0-7.7); Basophil# 0.06 X10^3/uL; Basophil% 0.9 % (0-1); Eosinophil# 0.48 X10^3/uL; Eosinophils% 6.9 % (0-5); Hematocrit 35.1 % (37-47); Hemoglobin 10.9 g/dL (12.0-15.0); Lymphocyte # 1.35 X10^3/ul (0.83-4.51); Lymphocyte % 19.5 % (19-41); Mean Corp Hgb Conc 31.1 g/dL (32-36); Mean Corpuscular Hgb 29.8 pg (27.0-32.0); Mean Corpuscular Volume 95.9 fL (81-99); Mean Platelet Vol. 10.3 fl (6.2-12.0); Monocyte# 0.66 X10^3/uL; Monocyte% 9.5 % (0-10); NRBC Flagged by Analyzer 0 % (0-5); Neutrophil # 4.37 X10^3/uL (2.7-7.7); Neutrophil % 62.9 % (47-70); Platelet Count 255 K/mm3 (150-450); RBC Distribution Width CV 15.4 % (11.6-14.6); Red Blood Count 3.66 M/mm3 (4.2-5.4); White Blood Count 6.9 K/mm3 (4.4-11.0)
[2022-04-26 12:52] LABS: Albumin, Serum 3.7 g/dL (3.2-5.0); BUN 20 mg/dL (7-18); BUN/Creat Ratio 13.9 RATIO (10-20); Creatinine, Serum 1.44 mg/dL (0.55-1.02); EST Glomerular Filtration Rate 38 mL/min (>60); Est Glom Filt Rate - Afr Amer 46 mL/min (>60); Glucose 98 mg/dL (74-106); Protein, Total 7.4 g/dL (6.4-8.2)
[2022-04-26 12:53] LABS: AST(SGOT) 20 U/L (15-37); Alanine Aminotransfer ALT/SGPT 18 U/L (13-56); Alkaline Phosphatase 127 U/L (45-117); Anion Gap 5 (5-15); Calcium,Total 9.4 mg/dL (8.5-10.1); Chloride 107 mmol/L (98-107); Cholesterol 158 mg/dL (200); Globulin 3.7 g/dL (2.2-4.2); High Density Lipoprotein 83 mg/dL; Potassium 4.6 mmol/L (3.5-5.1); Sodium Level 140 mmol/L (136-145); Triglycerides 71 mg/dL; Very Low Density Lipoprotein 14 mg/dL (5-40)
[2022-04-26 13:05] LABS: Vitamin D,25 Hydroxy 62.6 ng/mL
== END | disposition home or self-care (01) ==
LOC: BIMLAB 10:56
PROVIDERS: PCP Internal Medicine; Referring Provider Internal Medicine; Visit Provider Internal Medicine
DX: J30.2 Other seasonal allergic rhinitis (principal); I48.91 Unspecified atrial fibrillation; E78.5 Hyperlipidemia, unspecified; I10 Essential (primary) hypertension; E78.1 Pure hyperglyceridemia; E55.9 Vitamin D deficiency, unspecified
CPT/HCPCS: 36415; 80053; 80061; 82306; 84443; 85025

== ENCOUNTER → 2022-05-05 | Outpatient (CLI) | payer MEDICARE, SELFPAY ==
--- NOTE | 2022-05-05 12:29 | BI_ITS ---
MAMMOGRAPHY - BILATERAL SCREENING REASON FOR EXAM: Female, 71 years old. Routine annual screening examination. PERTINENT HISTORY: Grandmother with breast cancer. Remote left stereotactic breast biopsy. TECHNIQUE: Digital bilateral breast júnior (3D mammographic acquisition) in the CC and MLO projections. 2-D mediolateral oblique (MLO) and craniocaudad (CC) views of both breasts were obtained. CAD: Full Field Digital Mammography with Computer Added Detection was performed. COMPARISON: Comparison is made with prior outside examination dated 07/03/2019. FINDINGS: Breast Composition: There are scattered areas of fibroglandular density. There are no dominant masses or suspicious calcifications. No other significant abnormalities are identified. There has been no significant change since the prior study. BI/SCRN MAMM (CAD)W/JÚNIOR BILAT IMPRESSION: Stable bilateral screening mammogram. Yearly follow-up mammogram recommended. (A) ASSESSMENT CATEGORY: BIRADS Category 1: Negative. A letter regarding these results will be sent to the patient by the facility within 30 days. Approximately 10% of breast cancers are not detected by mammography. A normal mammogram should not delay biopsy of a clinically suspicious abnormality. [id number] Electronically Signed: Ja Simpson MD at 14:42 EST ,
[2022-05-05 12:34] LABS: Iron 41 ug/dL (50-170); Iron Binding Capacity,Total 431 ug/dL (250-450); PERCENT IRON SATURATION 9.5 % (15.0-55.0)
[2022-05-05 12:37] LABS: Vitamin B12 452 pg/mL (211-911)
== END | disposition home or self-care (01) ==
PROVIDERS: PCP Internal Medicine; Visit Provider Internal Medicine
DX: Z12.31 Encounter for screening mammogram for malignant neoplasm of breast (principal); Z80.3 Family history of malignant neoplasm of breast; D64.9 Anemia, unspecified
CPT/HCPCS: 36415; 77063; 77067; 82274; 82607; 82746; 83540; 83550

== ENCOUNTER → 2022-07-04 | Outpatient (CLI) | payer MEDICARE, SELFPAY ==
--- NOTE | 2022-07-04 16:56 | STRESSREP ---
Stress Test Report Pharmacologic myocardial perfusion stress test. 71-year-old lady with a history of dyspnea on exertion Resting EKG demonstrates sinus rhythm with a rate of 71 bpm with an incomplete left bundle branch block. Resting blood pressure is 124/66 mmHg. 0.4 mg of regadenoson was infused per usual protocol followed by rapid intravenous saline flush injection. Continuous EKG monitoring was performed. The maximum heart rate was 77 bpm which was 51% of max impacted heart rate the maximum workload was 1 metabolic equivalent. At rest there were no ST or T wave changes noted to suggest ischemia and at peak infusion nonspecific ST changes were noted which did not meet the criteria for ischemia. No clinical angina is noted. The final blood pressure was 114/62 mmHg. Myocardial perfusion protocol. 11.9 mCi of technetium 99m sestamibi was injected at rest. 0.4 mg of regadenoson was infused per usual protocol. At peak infusion 34.1 mCi of technetium 99m sestamibi was injected stress images were obtained stress and rest images were reconstructed and compared in the short axis vertical long and horizontal long axis. Gated images were also obtained. Perfusion SPECT analysis: Review of the stress images demonstrate normal uptake of tracer noted in all areas of the myocardium. The resting images similar demonstrated normal uptake of tracer noted in all areas of the myocardium. No areas of reversibility are noted to suggest ischemia and no previous infarct is noted. Gated SPECT analysis: The gated ejection fraction is 70%. Conclusion: Normal pharmacologic myocardial perfusion stress test. Preserved ejection fraction.
== END | disposition home or self-care (01) ==
PROVIDERS: PCP Internal Medicine; Referring Provider Internal Medicine; Visit Provider Internal Medicine
DX: R06.09 Other forms of dyspnea (principal)
CPT/HCPCS: 78452; 93017; A9500; A4216; J2785

== ENCOUNTER → 2024-07-02 | Outpatient (CLI) | payer MEDICARE, SELFPAY ==
[2024-07-02 17:35] LABS: Anion Gap 6 (5-15); BUN 19 mg/dL (7-18); BUN/Creat Ratio 12.7 RATIO (10-20); Calcium,Total 9.2 mg/dL (8.5-10.1); Chloride 107 mmol/L (98-107); EST Glomerular Filtration Rate 36 mL/min (>60); Est Glom Filt Rate - Afr Amer 44 mL/min (>60); Glucose 89 mg/dL (74-106); Potassium 4.2 mmol/L (3.5-5.1); Sodium Level 141 mmol/L (136-145)
== END | disposition home or self-care (01) ==
LOC: LAB 14:44
PROVIDERS: PCP Internal Medicine; Referring Provider Internal Medicine Cardiovascular Disease; Visit Provider Internal Medicine Cardiovascular Disease
DX: I50.9 Heart failure, unspecified (principal)
CPT/HCPCS: 36415; 80048